=== PATIENT | female | born 1940 | race Caucasian/White ===

== ENCOUNTER 2020-12-12 18:58 | Emergency (ER) | payer MEDICARE, OTHER ==
[~2020-12-12] VITALS: Ht 157.5 cm; Wt 78.9 kg
[2020-12-12] MEDS ORDERED: ELIQ5TAB PO (19:15)
[2020-12-12] MEDS ORDERED: CLORTRIMAZOLE (19:15)
[2020-12-12] MEDS ORDERED: ATOR80TA59 PO (19:15)
[2020-12-12] MEDS ORDERED: TOPR25TA PO (19:15)
[2020-12-12] MEDS ORDERED: BETA0.0543 (19:15)
[2020-12-12] MEDS ORDERED: CLOT1CRE56 TOP (19:15)
[2020-12-12] MEDS ORDERED: NORV5TAB PO (19:15)
[2020-12-12] MEDS ORDERED: XALA0.007 OP (19:15)
[2020-12-12] MEDS ORDERED: ECOT81TA5 PO (19:15)
[2020-12-12] MEDS ORDERED: TIMO0.5S42 OP (19:15)
[2020-12-12] MEDS ORDERED: CLAR10CA3 PO (19:15)
[2020-12-12] MEDS ORDERED: FLON27.5 NARES (19:15)
--- NOTE | 2020-12-12 20:00 | REP ---
INDICATION: pain and swelling after a fall COMPARISON: None. TECHNIQUE: AP, lateral, bilateral oblique views of the right elbow. FINDINGS: Lateral view demonstrates marked posterior soft tissue swelling over the olecranon raising the possibility of bursitis or traumatic swelling/effusion. Oblique view suggests a nondisplaced fracture involving the coronoid process and correlation is recommended. IMPRESSION: Soft tissue swelling primarily posteriorly. Suspected acute nondisplaced fracture of the ulnar coronoid process. <Electronically signed by Emile Churchill > 12/12/201955
[2020-12-12 21:31] VITALS: BP 150/80
--- NOTE | 2020-12-13 07:33 | REP ---
INDICATION: trauma COMPARISON: None. TECHNIQUE: AP and lateral views of the left humerus FINDINGS: Age-related changes at the shoulder and elbow joint. Lateral view demonstrates soft tissue swelling overlying the olecranon process possible bursitis. No subcutaneous emphysema or foreign body. IMPRESSION: Swelling at the posterior elbow. No obvious acute fracture or dislocation. <Electronically signed by Emile Churchill > 12/13/20 0710
== END 2020-12-12 21:54 | disposition home or self-care (01) ==
LOC: M ED 18:58
DX: S52.044A Nondisplaced fracture of coronoid process of right ulna, initial encounter for closed fracture (principal); W01.0XXA Fall on same level from slipping, tripping and stumbling without subsequent striking against object, initial encounter; Y92.098 Other place in other non-institutional residence as the place of occurrence of the external cause; Y93.01 Activity, walking, marching and hiking; Y99.8 Other external cause status; F03.90 Unspecified dementia, unspecified severity, without behavioral disturbance, psychotic disturbance, mood disturbance, and anxiety; E78.00 Pure hypercholesterolemia, unspecified; I48.91 Unspecified atrial fibrillation; Z79.899 Other long term (current) drug therapy; Z79.82 Long term (current) use of aspirin; Z79.01 Long term (current) use of anticoagulants